=== PATIENT | female | born 1985 | race Caucasian/White ===

== ENCOUNTER 2022-09-29 08:14 | Emergency (ER) | payer MEDICAID ==
[~2022-09-29] VITALS: Ht 160 cm; Wt 75.0 kg
[2022-09-29 08:51] VITALS: BP 140/95
[2022-09-29 11:19] LABS: BASOPHILS % 0.2 % (0.0-2.0); EOSINOPHILS % 0.2 % (0.0-5.0); HEMATOCRIT. 41.7 % (36.0-48.0); HEMOGLOBIN. 14.3 g/dL (12.0-16.0); LYMPHOCYTES % 21.9 % (20.0-50.0); MEAN CORPUSCULAR HEMOGLOBIN 32.3 pg (28.0-32.0); MEAN CORPUSCULAR VOLUME 94.5 fL (81.0-99.0); MEAN PLATELET VOLUME 9.8 fl (7.4-10.4); NEUTROPHILS % 71.7 % (40.0-76.0); PLATELET 205 x1000/uL (130-400); RED BLOOD CELL COUNT 4.41 mill/uL (4.2-5.4)
[2022-09-29 11:25] LABS: CHLORIDE 104 mEq/L (98-107)
[2022-09-29 11:34] LABS: B-HCG QUANTITATIVE 203 mIU/mL (<3)
[2022-09-29] MEDS ORDERED: POTASSIUM CHLORIDE 20MEQ/PACKET PO NR (11:45)
[2022-09-29] MEDS ORDERED: ONDANSETRON HCL 4MG/2ML INJ IM NR (11:45)
[2022-09-29 12:55] LABS: CLARITY URINE CLOUDY (CLEAR); COLOR URINE ORANGE (YELLOW); KETONES URINE 4+ (NEGATIVE); LEUKOCYTE ESTERASE URINE 1+ (NEGATIVE); NITRITE URINE POSITIVE (NEGATIVE); OCCULT BLOOD URINE 3+ (NEGATIVE); PH URINE 6.5 (4.5-8.0); PROTEIN URINE 1+ (NEGATIVE); SPECIFIC GRAVITY URINE 1.023 (1.005-1.030)
[2022-09-29] MEDS ORDERED: CEPH500C2 MT (13:32)
== END 2022-09-29 15:04 | disposition home or self-care (01) ==
LOC: ER 08:43
DX: N93.9 Abnormal uterine and vaginal bleeding, unspecified (principal)
CPT/HCPCS: 36415; 76801; 76817; 80053; 81003; 81025; 84702; 85025; 86850; 86900; 86901; 99284; J2405

== ENCOUNTER 2022-10-01 07:52 | Emergency (ER) | payer MEDICAID ==
[~2022-10-01] VITALS: Ht 172.7 cm; Wt 85.0 kg
[~2022-10-01 07:52] MED LIST: CEPH500C2 MT
[2022-10-01 07:56] VITALS: BP 158/92
== END 2022-10-01 11:14 | disposition home or self-care (01) ==
LOC: ER 07:52
DX: O20.9 Hemorrhage in early pregnancy, unspecified (principal); Z3A.01 Less than 8 weeks gestation of pregnancy
CPT/HCPCS: 36415; 76801; 81025; 84702; 99284

== ENCOUNTER 2022-10-07 15:40 | Emergency (ER) | payer MEDICAID ==
[~2022-10-07] VITALS: Ht 167.6 cm; Wt 90.0 kg
[2022-10-07 15:54] VITALS: BP 144/91
[2022-10-07 18:44] LABS: BASOPHILS % 0.3 % (0.0-2.0); EOSINOPHILS % 0.3 % (0.0-5.0); HEMATOCRIT. 43.2 % (36.0-48.0); HEMOGLOBIN. 14.7 g/dL (12.0-16.0); LYMPHOCYTES % 26.7 % (20.0-50.0); MEAN CORPUSCULAR HEMOGLOBIN 31.7 pg (28.0-32.0); MEAN CORPUSCULAR VOLUME 93.4 fL (81.0-99.0); MEAN PLATELET VOLUME 9.9 fl (7.4-10.4); MONOCYTES % 6.7 % (2.0-8.0); PLATELET 280 x1000/uL (130-400); RED BLOOD CELL COUNT 4.63 mill/uL (4.2-5.4); RED CELL DISTRIBUTION WIDTH 13.8 % (11.6-14.6)
[2022-10-07 18:50] LABS: CHLORIDE 102 mEq/L (98-107)
[2022-10-07 19:02] LABS: B-HCG QUANTITATIVE 474 mIU/mL (<3)
== END 2022-10-07 21:11 | disposition home or self-care (01) ==
LOC: ER 16:04
DX: O03.9 Complete or unspecified spontaneous abortion without complication (principal); N93.9 Abnormal uterine and vaginal bleeding, unspecified; Z3A.01 Less than 8 weeks gestation of pregnancy
CPT/HCPCS: 36415; 76801; 80048; 84702; 85025; 86850; 86900; 99284